=== PATIENT | female | born 1955 | race African-American/Black ===

== ENCOUNTER 2018-07-19 08:54 | Emergency (ER) | payer MEDICARE, MEDICAID ==
[~2018-07-19] VITALS: Ht 188 cm; Wt 104.0 kg
[2018-07-19 10:17] LABS: BASOPHILS % 1.1 % (0.0-2.0); EOSINOPHILS % 0.7 % (0.0-5.0); HEMATOCRIT. 40.9 % (36.0-48.0); HEMOGLOBIN. 13.1 g/dL (12.0-16.0); LYMPHOCYTES % 34.6 % (20.0-50.0); MEAN CORPUSCULAR HEMOGLOBIN 26.6 pg (28.0-32.0); MEAN CORPUSCULAR VOLUME 82.9 fL (81.0-99.0); MEAN PLATELET VOLUME 11.6 fl (7.4-10.4); MONOCYTES % 9.1 % (2.0-8.0); NEUTROPHILS % 54.5 % (40.0-76.0); PLATELET 202 x1000/uL (130-400); RED BLOOD CELL COUNT 4.94 mill/uL (4.2-5.4); RED CELL DISTRIBUTION WIDTH 13.9 % (11.6-14.6)
[2018-07-19 10:27] LABS: CHLORIDE 108 mEq/L (98-107)
[2018-07-19] MEDS ORDERED: IPRATROPIUM BROMIDE (0.02%) 0.5MG/2.5ML NEB HHN STA (11:13)
[2018-07-19] MEDS ORDERED: ALBUTEROL (0.083%) 2.5MG/3ML NEB HHN STA (11:13)
[2018-07-19] MEDS ORDERED: METHYLPREDNISOLONE SOD SUCC 125 MG/2 ML VIAL IV SCH (13:15)
[2018-07-19 13:23] VITALS: BP 158/71
== END 2018-07-19 14:01 | disposition home or self-care (01) ==
LOC: ER 08:54
DX: J44.1 Chronic obstructive pulmonary disease with (acute) exacerbation (principal); I10 Essential (primary) hypertension; Z88.0 Allergy status to penicillin
CPT/HCPCS: 36415; 71045; 80053; 84484; 85025; 93005; 94640; 96374; 99284; J2930; J7611

== ENCOUNTER 2020-01-23 04:36 | Emergency (ER) | payer MEDICARE, MEDICAID ==
[~2020-01-23] VITALS: Ht 188 cm; Wt 93.0 kg
[2020-01-23] MEDS ORDERED: KETOROLAC 30MG/ML VIAL IM ONE (05:30)
[2020-01-23 07:42] VITALS: BP 161/77
== END 2020-01-23 07:43 | disposition home or self-care (01) ==
LOC: ER 04:36
DX: M25.552 Pain in left hip (principal); M79.602 Pain in left arm; T46.4X5A Adverse effect of angiotensin-converting-enzyme inhibitors, initial encounter; E11.9 Type 2 diabetes mellitus without complications; I10 Essential (primary) hypertension; J44.9 Chronic obstructive pulmonary disease, unspecified; J45.909 Unspecified asthma, uncomplicated; Z88.0 Allergy status to penicillin
CPT/HCPCS: 70450; 72125; 73090; 73502; 96372; 99285; J1885

== ENCOUNTER 2020-05-31 13:01 | Inpatient (IN) | payer MEDICARE, MEDICAID ==
[~2020-05-31] VITALS: Ht 188 cm; Wt 109.4 kg
[2020-05-31 14:33] LABS: BASOPHILS % 0.6 % (0.0-2.0); EOSINOPHILS % 0.8 % (0.0-5.0); HEMATOCRIT. 41.1 % (36.0-48.0); HEMOGLOBIN. 13.2 g/dL (12.0-16.0); LYMPHOCYTES % 35.6 % (20.0-50.0); MEAN CORPUSCULAR HEMOGLOBIN 26.8 pg (28.0-32.0); MEAN CORPUSCULAR VOLUME 83.3 fL (81.0-99.0); MEAN PLATELET VOLUME 9.6 fl (7.4-10.4); MONOCYTES % 7.8 % (2.0-8.0); NEUTROPHILS % 55.2 % (40.0-76.0); PLATELET 256 x1000/uL (130-400); RED BLOOD CELL COUNT 4.93 mill/uL (4.2-5.4); RED CELL DISTRIBUTION WIDTH 13.3 % (11.6-14.6)
[2020-05-31 14:40] LABS: CHLORIDE 105 mEq/L (98-107)
[2020-05-31 14:44] LABS: D-DIMER 0.23 mg/L FEU (<0.50); PROTHROMBIN TIME 10.4 sec (9.6-11.0)
[2020-05-31 14:45] LABS: ETHANOL BLOOD < 10 mg/dL
[2020-05-31] MEDS ORDERED: LEVETIRACETAM 1000MG PREMIX 100 ML IV ONE (15:00)
[2020-05-31] MEDS ORDERED: IPRATROPIUM/ALBUTEROL 0.5-3(2.5)MG/3ML NEB HHN PRN (15:00)
[2020-05-31] MEDS ORDERED: ONDANSETRON HCL 4MG/2ML INJ IV PRN (15:00)
[2020-05-31] MEDS ORDERED: ACETAMINOPHEN 325MG TABLET PO PRN (15:00)
[2020-05-31 15:10] LABS: CLARITY URINE CLEAR (CLEAR); COLOR URINE YELLOW (YELLOW); KETONES URINE NEGATIVE (NEGATIVE); LEUKOCYTE ESTERASE URINE NEGATIVE (NEGATIVE); NITRITE URINE NEGATIVE (NEGATIVE); OCCULT BLOOD URINE NEGATIVE (NEGATIVE); PH URINE 6.5 (4.5-8.0); PROTEIN URINE NEGATIVE (NEGATIVE); SPECIFIC GRAVITY URINE 1.021 (1.005-1.030); UROBILINOGEN URINE 0.2 E.U./dL (0.2-1.0)
[2020-05-31 15:53] LABS: *AMPHETAMINES SCREEN URINE NEGATIVE (NEGATIVE); *BARBITURATES SCREEN URINE NEGATIVE (NEGATIVE); *BENZODIAZEPINES SCREEN URINE NEGATIVE (NEGATIVE); *COCAINE SCREEN URINE NEGATIVE (NEGATIVE); CANNABINOID URINE SCREEN NEGATIVE (NEGATIVE); OPIATES URINE SCREEN PRESUMTIVE POSITIVE (NEGATIVE); PHENCYCLIDINE URINE SCREEN NEGATIVE (NEGATIVE)
[2020-05-31 15:55] LABS: METHADONE URINE SCREEN NEGATIVE (NEGATIVE)
[2020-05-31] MEDS: ENOXAPARIN 40MG/0.4ML SYR SUBCUT SCH (17:13)
[2020-05-31] MEDS ORDERED: IOHEXOL-350 100 ML BOTTLE ONE (17:20)
[2020-05-31 23:25] VITALS: BP 183/98
[2020-06-01] VITALS (13 sets, daily range): BP systolic 114–178; BP diastolic 62–123
[2020-06-01] MEDS ORDERED: Atenolol (03:43)
[2020-06-01] MEDS ORDERED: Gabapentin (03:44)
[2020-06-01] MEDS ORDERED: Atorvastatin (03:45)
[2020-06-01] MEDS ORDERED: Metformin (03:46)
[2020-06-01] MEDS ORDERED: Amlodipine (03:47)
[2020-06-01] MEDS ORDERED: CLONIDINE 0.1MG TABLET PO PRN (06:00)
[2020-06-01] MEDS ORDERED: DEXTROSE 50% WATER 50ML SYRINGE IV PRN (06:00)
[2020-06-01] MEDS ORDERED: HYDROCODONE/ACETAMINOPHEN 5/325MG TABLET PO PRN (06:00)
[2020-06-01] MEDS: BLOOD SUGAR DIAGNOSTIC STRIP TEST SCH ×4 (06:50→21:03)
[2020-06-01] MEDS ORDERED: Lorazepam (08:16)
[2020-06-01] MEDS ORDERED: HEPARIN 5000 UNITS/ML VIAL SUBCUT SCH (09:00)
[2020-06-01] MEDS: ASPIRIN 81MG TABLET PO SCH (09:26)
[2020-06-01] MEDS: AMLODIPINE 10MG TABLET PO SCH (09:27)
[2020-06-01] MEDS: INSULIN LISPRO 100 UNITS/ML SUBCUT SCH ×4 (09:33→21:00)
[2020-06-01 10:25] LABS: CHLORIDE 106 mEq/L (98-107)
[2020-06-01 10:34] LABS: LDL CHOLESTEROL 79 mg/dL (5-100)
[2020-06-01 10:35] LABS: CREATINE KINASE 67 IU/L (26-192); HDL CHOLESTEROL 45 mg/dL (40-59)
[2020-06-01 10:37] LABS: CREATINE KINASE MB FRACTION < 1.0 ng/mL (0.5-3.6)
[2020-06-01] MEDS: LOSARTAN POTASSIUM 100 MG TABLET PO SCH (11:38)
[2020-06-01] MEDS: HYDROCODONE/ACETAMINOPHEN 5/325MG TABLET PO PRN ×2 (11:48→21:56)
[2020-06-01] MEDS: GABAPENTIN 300MG CAPSULE PO SCH ×2 (15:28→21:48)
[2020-06-01] MEDS: ENOXAPARIN 40MG/0.4ML SYR SUBCUT SCH (15:28)
[2020-06-01 16:10] LABS: CREATINE KINASE 65 IU/L (26-192)
[2020-06-01 16:11] LABS: CREATINE KINASE MB FRACTION < 1.0 ng/mL (0.5-3.6)
[2020-06-02] VITALS (11 sets, daily range): BP systolic 119–166; BP diastolic 63–79
[2020-06-02 00:42] LABS: CREATINE KINASE 64 IU/L (26-192)
[2020-06-02 00:44] LABS: CREATINE KINASE MB FRACTION < 1.0 ng/mL (0.5-3.6)
[2020-06-02] MEDS: GABAPENTIN 300MG CAPSULE PO SCH ×3 (06:35→22:08)
[2020-06-02] MEDS: BLOOD SUGAR DIAGNOSTIC STRIP TEST SCH ×4 (06:45→21:00)
[2020-06-02] MEDS: INSULIN LISPRO 100 UNITS/ML SUBCUT SCH ×4 (07:20→22:06)
[2020-06-02] MEDS: ASPIRIN 81MG TABLET PO SCH (08:33)
[2020-06-02] MEDS: LOSARTAN POTASSIUM 100 MG TABLET PO SCH (08:33)
[2020-06-02] MEDS: AMLODIPINE 10MG TABLET PO SCH (08:33)
[2020-06-02] MEDS: HYDROCODONE/ACETAMINOPHEN 5/325MG TABLET PO PRN ×2 (13:00→22:08)
[2020-06-02] MEDS: ENOXAPARIN 40MG/0.4ML SYR SUBCUT SCH (15:08)
[2020-06-02] MEDS: IPRATROPIUM/ALBUTEROL 0.5-3(2.5)MG/3ML NEB HHN SCH ×2 (15:13→20:17)
[2020-06-03] VITALS (7 sets, daily range): BP systolic 113–141; BP diastolic 64–82
[2020-06-03] MEDS: IPRATROPIUM/ALBUTEROL 0.5-3(2.5)MG/3ML NEB HHN SCH ×3 (00:23→07:24)
[2020-06-03] MEDS: GABAPENTIN 300MG CAPSULE PO SCH (06:14)
[2020-06-03] MEDS: BLOOD SUGAR DIAGNOSTIC STRIP TEST SCH ×2 (06:24→12:10)
[2020-06-03] MEDS: INSULIN LISPRO 100 UNITS/ML SUBCUT SCH ×2 (06:24→12:23)
[2020-06-03] MEDS: LOSARTAN POTASSIUM 100 MG TABLET PO SCH (08:40)
[2020-06-03] MEDS: AMLODIPINE 10MG TABLET PO SCH (08:40)
[2020-06-03] MEDS: ASPIRIN 81MG TABLET PO SCH (08:40)
[2020-06-03] MEDS: HYDROCODONE/ACETAMINOPHEN 5/325MG TABLET PO PRN (10:55)
== END 2020-06-03 13:00 | disposition home or self-care (01) | DRG 71 ==
LOC: ER 13:01 → 3WST 14:55 → EDBEDREQ 14:58 → ENRESERV 21:44
PROVIDERS: ADMIT Family Medicine Adult Medicine; ATTEND Family Medicine Adult Medicine
DX: I67.2 Cerebral atherosclerosis (principal); G45.9 Transient cerebral ischemic attack, unspecified; E11.9 Type 2 diabetes mellitus without complications; E66.9 Obesity, unspecified; M54.30 Sciatica, unspecified side; E78.5 Hyperlipidemia, unspecified; R53.1 Weakness; I10 Essential (primary) hypertension; J44.9 Chronic obstructive pulmonary disease, unspecified; Z88.8 Allergy status to other drugs, medicaments and biological substances; Z88.0 Allergy status to penicillin; Z86.73 Personal history of transient ischemic attack (TIA), and cerebral infarction without residual deficits; Z71.3 Dietary counseling and surveillance; Z68.31 Body mass index [BMI] 31.0-31.9, adult
CPT/HCPCS: 36415; 70496; 70498; 70551; 71045; 80053; 80061; 80305; 80320; 81003; 82140; 82550; 82553; 82962; 83036; 83880; 84443; 84484; 85025; 85379; 93005; 97116; 97162; 97165; 99285; J1650; J1815; Q9967; G0480

== ENCOUNTER 2020-08-03 14:41 | Inpatient (IN) | payer MEDICARE, MEDICAID ==
[~2020-08-03] VITALS: Ht 177.8 cm; Wt 105.7 kg
[~2020-08-03 14:41] MED LIST: Amlodipine; Atenolol; Atorvastatin; Gabapentin; Metformin
[2020-08-03 15:44] LABS: BASOPHILS % 0.9 % (0.0-2.0); HEMATOCRIT. 42.2 % (36.0-48.0); HEMOGLOBIN. 13.6 g/dL (12.0-16.0); LYMPHOCYTES % 34.3 % (20.0-50.0); MEAN CORPUSCULAR VOLUME 83.5 fL (81.0-99.0); MEAN PLATELET VOLUME 10.3 fl (7.4-10.4); MONOCYTES % 8.9 % (2.0-8.0); NEUTROPHILS % 54.9 % (40.0-76.0); PLATELET 201 x1000/uL (130-400); RED BLOOD CELL COUNT 5.05 mill/uL (4.2-5.4); RED CELL DISTRIBUTION WIDTH 13.6 % (11.6-14.6)
[2020-08-03 15:48] LABS: CHLORIDE 106 mEq/L (98-107)
[2020-08-03 15:53] LABS: ETHANOL BLOOD < 10 mg/dL
[2020-08-03 15:57] LABS: CREATINE KINASE 100 IU/L (26-192)
[2020-08-03] MEDS ORDERED: ACETAMINOPHEN 325MG TABLET PO ONE (16:45)
[2020-08-03] MEDS ORDERED: IOHEXOL-350 100 ML BOTTLE ONE (17:21)
[2020-08-03 18:29] LABS: CLARITY URINE CLEAR (CLEAR); COLOR URINE YELLOW (YELLOW); KETONES URINE NEGATIVE (NEGATIVE); LEUKOCYTE ESTERASE URINE NEGATIVE (NEGATIVE); NITRITE URINE NEGATIVE (NEGATIVE); OCCULT BLOOD URINE NEGATIVE (NEGATIVE); PH URINE 6.5 (4.5-8.0); PROTEIN URINE NEGATIVE (NEGATIVE); SPECIFIC GRAVITY URINE 1.035 (1.005-1.030); UROBILINOGEN URINE 0.2 E.U./dL (0.2-1.0)
[2020-08-03 18:43] LABS: *AMPHETAMINES SCREEN URINE NEGATIVE (NEGATIVE); *BARBITURATES SCREEN URINE NEGATIVE (NEGATIVE); *BENZODIAZEPINES SCREEN URINE NEGATIVE (NEGATIVE); *COCAINE SCREEN URINE NEGATIVE (NEGATIVE); METHADONE URINE SCREEN NEGATIVE (NEGATIVE); OPIATES URINE SCREEN PRESUMTIVE POSITIVE (NEGATIVE)
[2020-08-03 18:44] LABS: CANNABINOID URINE SCREEN NEGATIVE (NEGATIVE); PHENCYCLIDINE URINE SCREEN NEGATIVE (NEGATIVE)
[2020-08-03] MEDS ORDERED: DOCUSATE SODIUM 100MG CAPSULE PO PRN (19:45)
[2020-08-03] MEDS ORDERED: ONDANSETRON HCL 4MG/2ML INJ IV PRN (19:45)
[2020-08-03] MEDS ORDERED: IPRATROPIUM/ALBUTEROL 0.5-3(2.5)MG/3ML NEB NEB PRN (19:45)
[2020-08-03] MEDS ORDERED: MORPHINE SULFATE 2 MG/ML CPJ (NOT FOR IM USE) IV PRN (19:45)
[2020-08-03] MEDS ORDERED: DEXTROSE 50% WATER 50ML SYRINGE IV PRN ×2 (19:45→23:00)
[2020-08-03] MEDS ORDERED: DIPHENHYDRAMINE 50MG/ML VIAL IV PRN (19:45)
[2020-08-03] MEDS ORDERED: CLONIDINE 0.1MG TABLET PO PRN (19:45)
[2020-08-03] MEDS ORDERED: MAGNESIUM/ALUMINUM HYDROXIDE/SIMETHICONE 30ML UDC PO PRN (19:45)
[2020-08-03] MEDS ORDERED: GUAIFENESIN 200MG/10ML SUGAR FREE UDC PO PRN (19:45)
[2020-08-03] MEDS ORDERED: NA PHOS,M-B/NA PHOS,DI-BA ENEMA 118ML PR PRN (19:45)
[2020-08-03] MEDS ORDERED: LORAZEPAM 2MG/ML CPJ IV PRN (19:45)
[2020-08-03] MEDS ORDERED: HYDROCODONE/ACETAMINOPHEN 10/325MG TABLET PO PRN (19:45)
[2020-08-03] MEDS ORDERED: HYDRALAZINE 20MG/ML VIAL IV PRN (19:45)
[2020-08-03] MEDS ORDERED: ACETAMINOPHEN 325MG TABLET PO PRN ×2 (19:45→23:15)
[2020-08-03] MEDS ORDERED: INSULIN LISPRO 100 UNITS/ML SUBCUT SCH (21:00)
[2020-08-03] MEDS ORDERED: BLOOD SUGAR DIAGNOSTIC STRIP TEST SCH (21:00)
[2020-08-03] MEDS ORDERED: ENOXAPARIN 30MG/0.3ML SYR SUBCUT SCH (21:00)
[2020-08-03] MEDS ORDERED: SODIUM CHLORIDE 0.9% INJ 3ML FLUSH IVF SCH (22:00)
[2020-08-03] MEDS ORDERED: LORAZEPAM 1MG TABLET PO ONE (23:15)
[2020-08-04] MEDS: BLOOD SUGAR DIAGNOSTIC STRIP TEST SCH ×4 (06:30→20:49)
[2020-08-04] MEDS: INSULIN LISPRO (MEDIUM DOSE) 100 UNITS/ML SUBCUT SCH ×5 (07:00→21:55)
[2020-08-04 08:00] VITALS: BP 124/52
[2020-08-04 09:00] VITALS: BP 142/62
[2020-08-04] MEDS ORDERED: HYDR-4350 PO (11:59)
[2020-08-04 12:00] VITALS: BP 145/88
[2020-08-04] MEDS: ENOXAPARIN 30MG/0.3ML SYR SUBCUT SCH ×2 (12:00→21:00)
[2020-08-04] MEDS: LACTULOSE 20G/30ML UDC PO SCH ×2 (14:12→21:34)
[2020-08-04] MEDS: LORAZEPAM 1MG TABLET PO PRN (14:12)
[2020-08-04] MEDS ORDERED: HYDROCODONE/ACETAMINOPHEN 5/325MG TABLET PO PRN ×2 (15:00→16:00)
[2020-08-04 16:00] VITALS: BP 126/52
[2020-08-04] MEDS ORDERED: IPRATROPIUM/ALBUTEROL 0.5-3(2.5)MG/3ML NEB HHN PRN (16:00)
[2020-08-04 20:00] VITALS: BP 109/68
[2020-08-04 20:37] LABS: BASOPHILS % 0.5 % (0.0-2.0); EOSINOPHILS % 1.1 % (0.0-5.0); HEMATOCRIT. 40.5 % (36.0-48.0); LYMPHOCYTES % 36.5 % (20.0-50.0); MEAN CORPUSCULAR HEMOGLOBIN 26.7 pg (28.0-32.0); MEAN CORPUSCULAR VOLUME 83.3 fL (81.0-99.0); MEAN PLATELET VOLUME 10.9 fl (7.4-10.4); MONOCYTES % 10.8 % (2.0-8.0); NEUTROPHILS % 51.1 % (40.0-76.0); PLATELET 211 x1000/uL (130-400); RED BLOOD CELL COUNT 4.87 mill/uL (4.2-5.4); RED CELL DISTRIBUTION WIDTH 13.5 % (11.6-14.6)
[2020-08-04 20:42] LABS: CHLORIDE 107 mEq/L (98-107)
[2020-08-04] MEDS: ATORVASTATIN CALCIUM 40MG TABLET PO SCH (21:33)
[2020-08-05] VITALS: BP 142/69
[2020-08-05 04:00] VITALS: BP 120/69
[2020-08-05] MEDS: BLOOD SUGAR DIAGNOSTIC STRIP TEST SCH ×3 (05:41→21:00)
[2020-08-05] MEDS: LACTULOSE 20G/30ML UDC PO SCH (06:23)
[2020-08-05] MEDS: INSULIN LISPRO (MEDIUM DOSE) 100 UNITS/ML SUBCUT SCH ×3 (06:33→21:00)
[2020-08-05 06:41] LABS: EOSINOPHILS % 1.8 % (0.0-5.0); HEMATOCRIT. 39.4 % (36.0-48.0); HEMOGLOBIN. 12.8 g/dL (12.0-16.0); LYMPHOCYTES % 37.7 % (20.0-50.0); MEAN CORPUSCULAR HEMOGLOBIN 26.8 pg (28.0-32.0); MEAN CORPUSCULAR VOLUME 82.7 fL (81.0-99.0); MEAN PLATELET VOLUME 10.8 fl (7.4-10.4); MONOCYTES % 11.2 % (2.0-8.0); NEUTROPHILS % 48.3 % (40.0-76.0); PLATELET 218 x1000/uL (130-400); RED BLOOD CELL COUNT 4.77 mill/uL (4.2-5.4); RED CELL DISTRIBUTION WIDTH 13.4 % (11.6-14.6)
[2020-08-05 07:01] LABS: CHLORIDE 106 mEq/L (98-107)
[2020-08-05 08:00] VITALS: BP 125/69
[2020-08-05] MEDS: ENOXAPARIN 30MG/0.3ML SYR SUBCUT SCH ×2 (09:00→21:00)
[2020-08-05] MEDS ORDERED: ASPIRIN 81MG TABLET PO SCH (09:00)
[2020-08-05] MEDS: HYDROCODONE/ACETAMINOPHEN 10/325MG TABLET PO PRN ×2 (11:09→21:12)
[2020-08-05 12:00] VITALS: BP 124/70
[2020-08-05 16:00] VITALS: BP 156/81
[2020-08-05 20:00] VITALS: BP 104/84
[2020-08-05] MEDS: ATORVASTATIN CALCIUM 40MG TABLET PO SCH (21:10)
[2020-08-06] VITALS: BP 160/85
[2020-08-06] MEDS: LORAZEPAM 1MG TABLET PO PRN (00:59)
[2020-08-06 04:00] VITALS: BP 135/75
[2020-08-06] MEDS: BLOOD SUGAR DIAGNOSTIC STRIP TEST SCH ×4 (05:53→20:58)
[2020-08-06] MEDS: INSULIN LISPRO (MEDIUM DOSE) 100 UNITS/ML SUBCUT SCH ×4 (05:57→21:03)
[2020-08-06 08:00] VITALS: BP 97/57
[2020-08-06] MEDS: ENOXAPARIN 30MG/0.3ML SYR SUBCUT SCH ×3 (09:00→21:00)
[2020-08-06] MEDS: CLOPIDOGREL 75MG TABLET PO SCH (09:23)
[2020-08-06] MEDS: HYDROCODONE/ACETAMINOPHEN 10/325MG TABLET PO PRN ×2 (10:26→19:50)
[2020-08-06 12:00] VITALS: BP 138/78
[2020-08-06 16:00] VITALS: BP 133/55
[2020-08-06 20:00] VITALS: BP 152/80
[2020-08-06] MEDS: ATORVASTATIN CALCIUM 40MG TABLET PO SCH (20:58)
[2020-08-07] VITALS: BP 141/73
[2020-08-07 04:00] VITALS: BP 116/61
[2020-08-07] MEDS: BLOOD SUGAR DIAGNOSTIC STRIP TEST SCH ×2 (06:19→12:10)
[2020-08-07 08:00] VITALS: BP 137/54
[2020-08-07] MEDS: INSULIN LISPRO (MEDIUM DOSE) 100 UNITS/ML SUBCUT SCH ×2 (08:23→12:40)
[2020-08-07] MEDS: ENOXAPARIN 30MG/0.3ML SYR SUBCUT SCH ×2 (08:24→08:44)
[2020-08-07] MEDS: CLOPIDOGREL 75MG TABLET PO SCH (08:24)
[2020-08-07] MEDS: HYDROCODONE/ACETAMINOPHEN 10/325MG TABLET PO PRN (08:27)
[2020-08-07 12:00] VITALS: BP 123/72
[2020-08-07 14:12] VITALS: BP 123/72
== END 2020-08-07 15:03 | disposition home or self-care (01) | DRG 69 ==
LOC: ER 14:41 → MICUSO 18:09 → 8WST 08-04 07:33
PROVIDERS: ADMIT Internal Medicine; ATTEND Internal Medicine
DX: G45.9 Transient cerebral ischemic attack, unspecified (principal); E72.20 Disorder of urea cycle metabolism, unspecified; E11.9 Type 2 diabetes mellitus without complications; E66.9 Obesity, unspecified; E78.00 Pure hypercholesterolemia, unspecified; E78.5 Hyperlipidemia, unspecified; I10 Essential (primary) hypertension; J44.9 Chronic obstructive pulmonary disease, unspecified; R29.810 Facial weakness; M54.30 Sciatica, unspecified side; R20.2 Paresthesia of skin; K76.0 Fatty (change of) liver, not elsewhere classified; Z88.0 Allergy status to penicillin; Z86.73 Personal history of transient ischemic attack (TIA), and cerebral infarction without residual deficits; Z88.8 Allergy status to other drugs, medicaments and biological substances; G43.909 Migraine, unspecified, not intractable, without status migrainosus; Z68.33 Body mass index [BMI] 33.0-33.9, adult
CPT/HCPCS: 36415; 70496; 70551; 71045; 76700; 80048; 80053; 80305; 80320; 81003; 82140; 82550; 82962; 83605; 83880; 84443; 84484; 85025; 93005; 93306; 93880; 93970; 96374; 97162; 97165; 99291; J1650; J1815; J2060; J2405; Q9967; G0480

== ENCOUNTER 2021-03-03 17:56 | Emergency (ER) | payer MEDICARE, MEDICAID ==
[~2021-03-03] VITALS: Ht 188 cm; Wt 105.0 kg
[~2021-03-03 17:56] MED LIST changes: +ASPI-1497 MT; -Amlodipine; -Atenolol; -Atorvastatin; -Gabapentin; +HYDR-4350 PO; +KEPP500 MT; -Metformin; +amlodipine; +metformin; +metoprolol
[2021-03-03] MEDS ORDERED: LEVETIRACETAM 500MG PREMIX 100 ML IV ONE (19:45)
[2021-03-03 20:14] LABS: EOSINOPHILS % 0.7 % (0.0-5.0); HEMATOCRIT. 38.2 % (36.0-48.0); HEMOGLOBIN. 12.8 g/dL (12.0-16.0); LYMPHOCYTES % 36.8 % (20.0-50.0); MEAN CORPUSCULAR HEMOGLOBIN 27.2 pg (28.0-32.0); MEAN CORPUSCULAR VOLUME 81.3 fL (81.0-99.0); MEAN PLATELET VOLUME 10.3 fl (7.4-10.4); MONOCYTES % 11.9 % (2.0-8.0); NEUTROPHILS % 49.6 % (40.0-76.0); PLATELET 222 x1000/uL (130-400); RED BLOOD CELL COUNT 4.69 mill/uL (4.2-5.4); RED CELL DISTRIBUTION WIDTH 13.4 % (11.6-14.6)
[2021-03-03 20:42] LABS: CHLORIDE 111 mEq/L (98-107)
[2021-03-03 20:49] LABS: ETHANOL BLOOD < 10 mg/dL
[2021-03-03] MEDS ORDERED: ACETAMINOPHEN 325MG TABLET PO ONE (21:00)
[2021-03-03 22:00] VITALS: BP 132/80
== END 2021-03-03 23:00 | disposition home or self-care (01) ==
LOC: ER 17:56
DX: G40.909 Epilepsy, unspecified, not intractable, without status epilepticus (principal); E11.9 Type 2 diabetes mellitus without complications; I10 Essential (primary) hypertension; J44.9 Chronic obstructive pulmonary disease, unspecified; Z86.73 Personal history of transient ischemic attack (TIA), and cerebral infarction without residual deficits; Z88.8 Allergy status to other drugs, medicaments and biological substances; Z88.0 Allergy status to penicillin; Z79.84 Long term (current) use of oral hypoglycemic drugs
CPT/HCPCS: 36415; 70450; 80053; 80320; 82962; 85025; 96365; 96366; 99285; J1953; G0480

== ENCOUNTER 2021-06-24 07:00 | Emergency (ER) | payer MEDICARE, MEDICAID ==
[~2021-06-24] VITALS: Ht 177.8 cm; Wt 86.0 kg
[2021-06-24 08:48] LABS: BASOPHILS % 1.3 % (0.0-2.0); HEMATOCRIT. 37.3 % (36.0-48.0); HEMOGLOBIN. 12.3 g/dL (12.0-16.0); LYMPHOCYTES % 39.1 % (20.0-50.0); MEAN CORPUSCULAR VOLUME 81.7 fL (81.0-99.0); MONOCYTES % 11.7 % (2.0-8.0); NEUTROPHILS % 46.9 % (40.0-76.0); PLATELET 286 x1000/uL (130-400); RED BLOOD CELL COUNT 4.57 mill/uL (4.2-5.4)
[2021-06-24 08:52] LABS: CHLORIDE 108 mEq/L (98-107)
[2021-06-24 08:56] LABS: ETHANOL BLOOD < 10 mg/dL
[2021-06-24 10:21] LABS: CLARITY URINE CLEAR (CLEAR); COLOR URINE YELLOW (YELLOW); KETONES URINE NEGATIVE (NEGATIVE); LEUKOCYTE ESTERASE URINE NEGATIVE (NEGATIVE); NITRITE URINE NEGATIVE (NEGATIVE); OCCULT BLOOD URINE NEGATIVE (NEGATIVE); PROTEIN URINE NEGATIVE (NEGATIVE); SPECIFIC GRAVITY URINE 1.025 (1.005-1.030); UROBILINOGEN URINE 0.2 E.U./dL (0.2-1.0)
[2021-06-24 10:34] LABS: *BENZODIAZEPINES SCREEN URINE NEGATIVE (NEGATIVE)
[2021-06-24 10:35] LABS: *AMPHETAMINES SCREEN URINE NEGATIVE (NEGATIVE); *BARBITURATES SCREEN URINE NEGATIVE (NEGATIVE); *COCAINE SCREEN URINE NEGATIVE (NEGATIVE); CANNABINOID URINE SCREEN NEGATIVE (NEGATIVE); METHADONE URINE SCREEN NEGATIVE (NEGATIVE); OPIATES URINE SCREEN PRESUMTIVE POSITIVE (NEGATIVE); PHENCYCLIDINE URINE SCREEN NEGATIVE (NEGATIVE)
[2021-06-24] MEDS ORDERED: KEPP500 MT (13:19)
[2021-06-24] MEDS ORDERED: NITR-87 MT (13:19)
[2021-06-24 13:48] VITALS: BP 136/65
== END 2021-06-24 14:19 | disposition home or self-care (01) ==
LOC: ER 07:45
DX: G40.909 Epilepsy, unspecified, not intractable, without status epilepticus (principal); R51.9 Headache, unspecified; N39.0 Urinary tract infection, site not specified; E11.9 Type 2 diabetes mellitus without complications; I10 Essential (primary) hypertension; J44.9 Chronic obstructive pulmonary disease, unspecified; Z79.899 Other long term (current) drug therapy; Z88.0 Allergy status to penicillin; Z88.8 Allergy status to other drugs, medicaments and biological substances; Z86.73 Personal history of transient ischemic attack (TIA), and cerebral infarction without residual deficits
CPT/HCPCS: 36415; 80053; 80305; 80320; 81003; 85025; 93005; 99284; 99285; G0480

== ENCOUNTER 2021-08-22 21:06 | Emergency (ER) | payer MEDICARE, MEDICAID ==
[~2021-08-22] VITALS: Ht 188 cm; Wt 104.0 kg
[~2021-08-22 21:06] MED LIST changes: +NITR-87 MT
[2021-08-22] MEDS ORDERED: KETOROLAC 60MG/2ML VIAL IM ONE (23:00)
[2021-08-22] MEDS ORDERED: LIDOCAINE 5% PATCH TOP SCH (23:00)
[2021-08-22] MEDS ORDERED: METHOCARBAMOL 500MG TABLET PO ONE (23:00)
[2021-08-23] MEDS ORDERED: LIDO1ADH5 TP (00:16)
[2021-08-23] MEDS ORDERED: IBUP-2028 MT (00:16)
[2021-08-23] MEDS ORDERED: METH-653 MT (00:17)
[2021-08-23 00:48] VITALS: BP 138/88
== END 2021-08-23 00:49 | disposition home or self-care (01) ==
LOC: ER 21:06
DX: S06.0X0A Concussion without loss of consciousness, initial encounter (principal); S13.4XXA Sprain of ligaments of cervical spine, initial encounter; E11.9 Type 2 diabetes mellitus without complications; J44.9 Chronic obstructive pulmonary disease, unspecified; I10 Essential (primary) hypertension; G40.909 Epilepsy, unspecified, not intractable, without status epilepticus; Z86.73 Personal history of transient ischemic attack (TIA), and cerebral infarction without residual deficits; Z88.0 Allergy status to penicillin; Z88.8 Allergy status to other drugs, medicaments and biological substances; Z79.82 Long term (current) use of aspirin; Z79.84 Long term (current) use of oral hypoglycemic drugs; W22.8XXA Striking against or struck by other objects, initial encounter; Y93.89 Activity, other specified; Y92.810 Car as the place of occurrence of the external cause
CPT/HCPCS: 70450; 72125; 96372; 99284; J1885

== ENCOUNTER 2022-01-25 13:57 | Emergency (ER) | payer MEDICARE, MEDICAID ==
[~2022-01-25] VITALS: Ht 188 cm; Wt 105.0 kg
[~2022-01-25 13:57] MED LIST changes: +IBUP-2028 MT; +LIDO1ADH5 TP; +METH-653 MT
[2022-01-25] MEDS ORDERED: ONDANSETRON HCL 4MG/2ML INJ IV STA (16:16)
[2022-01-25] MEDS ORDERED: MORPHINE SULFATE 4 MG/ML CPJ (NOT FOR IM USE) IV STA (16:16)
[2022-01-25 16:37] LABS: BASOPHILS % 0.8 % (0.0-2.0); EOSINOPHILS % 1.3 % (0.0-5.0); HEMATOCRIT. 42.4 % (36.0-48.0); HEMOGLOBIN. 13.4 g/dL (12.0-16.0); LYMPHOCYTES % 37.4 % (20.0-50.0); MEAN CORPUSCULAR HEMOGLOBIN 26.8 pg (28.0-32.0); MEAN PLATELET VOLUME 10.6 fl (7.4-10.4); MONOCYTES % 10.6 % (2.0-8.0); NEUTROPHILS % 49.9 % (40.0-76.0); PLATELET 233 x1000/uL (130-400); RED BLOOD CELL COUNT 4.99 mill/uL (4.2-5.4); RED CELL DISTRIBUTION WIDTH 14.5 % (11.6-14.6)
[2022-01-25 16:40] LABS: CHLORIDE 109 mEq/L (98-107)
[2022-01-25] MEDS ORDERED: HYDR-4001 MT (18:01)
[2022-01-25 18:26] VITALS: BP 137/75
== END 2022-01-25 18:28 | disposition home or self-care (01) ==
LOC: ER 13:57
DX: M54.9 Dorsalgia, unspecified (principal); J44.9 Chronic obstructive pulmonary disease, unspecified; E11.9 Type 2 diabetes mellitus without complications; I10 Essential (primary) hypertension; Z86.73 Personal history of transient ischemic attack (TIA), and cerebral infarction without residual deficits; Z79.899 Other long term (current) drug therapy
CPT/HCPCS: 36415; 71045; 71250; 72125; 74176; 80053; 83880; 84484; 85025; 96374; 96375; 99285; J2270; J2405

== ENCOUNTER 2022-04-18 21:00 | Emergency (ER) | payer MEDICARE, MEDICAID ==
[~2022-04-18] VITALS: Ht 188 cm; Wt 110.0 kg
[2022-04-18] MEDS ORDERED: DIPHENHYDRAMINE 50MG/ML VIAL IV ONE (21:30)
[2022-04-18] MEDS ORDERED: FAMOTIDINE 20MG/2ML VIAL IV ONE (21:30)
[2022-04-18] MEDS: ALBUTEROL (0.083%) 2.5MG/3ML NEB HHN SCH ×3 (21:54→23:16)
[2022-04-18] MEDS ORDERED: ACETAMINOPHEN 325MG TABLET PO ONE (23:00)
[2022-04-19 01:30] VITALS: BP 157/81
== END 2022-04-19 02:00 | disposition home or self-care (01) ==
LOC: ER 21:00
DX: T78.40XA Allergy, unspecified, initial encounter (principal); I10 Essential (primary) hypertension; E11.9 Type 2 diabetes mellitus without complications; Z88.0 Allergy status to penicillin; Z88.8 Allergy status to other drugs, medicaments and biological substances; Z79.899 Other long term (current) drug therapy; Z98.890 Other specified postprocedural states; X58.XXXA Exposure to other specified factors, initial encounter
CPT/HCPCS: 94640; 96374; 96375; 99285; J1200; J3490

== ENCOUNTER 2022-10-30 21:20 | Inpatient (IN) | payer MEDICARE, MEDICAID ==
[~2022-10-30] VITALS: Ht 188 cm; Wt 108.0 kg
[2022-10-30] MEDS ORDERED: SODIUM CHLORIDE 0.9% 1,000 ML IV ONE (23:15)
[2022-10-30 23:25] LABS: BASOPHILS % 0.8 % (0.0-2.0); EOSINOPHILS % 0.9 % (0.0-5.0); HEMATOCRIT. 35.3 % (36.0-48.0); HEMOGLOBIN. 11.4 g/dL (12.0-16.0); MEAN CORPUSCULAR HEMOGLOBIN 26.8 pg (28.0-32.0); MEAN CORPUSCULAR VOLUME 83.3 fL (81.0-99.0); MEAN PLATELET VOLUME 9.8 fl (7.4-10.4); MONOCYTES % 11.3 % (2.0-8.0); PLATELET 325 x1000/uL (130-400); RED BLOOD CELL COUNT 4.24 mill/uL (4.2-5.4); RED CELL DISTRIBUTION WIDTH 13.9 % (11.6-14.6)
[2022-10-30 23:27] LABS: CHLORIDE 111 mEq/L (98-107)
[2022-10-30 23:29] LABS: INR 1.1; PROTHROMBIN TIME 11.3 sec (9.6-11.0)
[2022-10-31] MEDS: ASPIRIN 325MG EC TABLET PO ONE ×2 (03:30→03:48)
[2022-10-31] MEDS ORDERED: OXYCODONE HCL/ACETAMINOPHEN 5/325MG TABLET PO NR (04:30)
[2022-10-31] MEDS ORDERED: DIPHENHYDRAMINE 25MG CAPSULE PO ONE (05:00)
[2022-10-31 05:16] LABS: CLARITY URINE CLEAR (CLEAR); COLOR URINE YELLOW (YELLOW); KETONES URINE NEGATIVE (NEGATIVE); LEUKOCYTE ESTERASE URINE NEGATIVE (NEGATIVE); NITRITE URINE NEGATIVE (NEGATIVE); OCCULT BLOOD URINE NEGATIVE (NEGATIVE); PROTEIN URINE NEGATIVE (NEGATIVE); SPECIFIC GRAVITY URINE 1.022 (1.005-1.030); UROBILINOGEN URINE 0.2 E.U./dL (0.2-1.0)
[2022-10-31 09:15] VITALS: BP 154/82
[2022-10-31 09:36] VITALS: BP 154/82
[2022-10-31] MEDS ORDERED: IPRATROPIUM/ALBUTEROL 0.5-3(2.5)MG/3ML NEB HHN PRN (11:30)
[2022-10-31] MEDS ORDERED: ONDANSETRON HCL 4MG/2ML INJ IV PRN (11:30)
[2022-10-31] MEDS ORDERED: CLONIDINE 0.1MG TABLET PO PRN (11:30)
[2022-10-31] MEDS ORDERED: DIPHENHYDRAMINE 50MG/ML VIAL IV PRN (11:30)
[2022-10-31] MEDS ORDERED: ACETAMINOPHEN 325MG TABLET PO PRN (11:30)
[2022-10-31] MEDS ORDERED: DEXTROSE 50% WATER 50ML SYRINGE IV PRN (13:30)
[2022-10-31 15:30] VITALS: BP 126/73
[2022-10-31] MEDS: AMLODIPINE 5MG TABLET PO SCH (15:34)
[2022-10-31] MEDS: BLOOD SUGAR DIAGNOSTIC STRIP TEST SCH ×2 (17:13→20:34)
[2022-10-31] MEDS: INSULIN LISPRO 100 UNITS/ML SUBCUT SCH ×2 (17:14→20:34)
[2022-10-31] MEDS ORDERED: SEMA2PEN SQ (19:50)
[2022-10-31] MEDS ORDERED: GABA-532 PO (19:50)
[2022-10-31 20:00] VITALS: BP 162/82
[2022-10-31] MEDS ORDERED: NALOXONE HCL 0.4MG/ML VIAL IV PRN (22:00)
[2022-10-31 22:16] VITALS: BP 143/80
[2022-10-31] MEDS: LEVETIRACETAM 500MG TABLET PO SCH (22:18)
[2022-10-31] MEDS: GABAPENTIN 300MG CAPSULE PO SCH (22:18)
[2022-10-31] MEDS: HYDROCODONE/ACETAMINOPHEN 10/325MG TABLET PO PRN (22:19)
[2022-11-01] VITALS: BP 130/62
[2022-11-01 05:30] VITALS: BP 123/69
[2022-11-01] MEDS: BLOOD SUGAR DIAGNOSTIC STRIP TEST SCH ×4 (05:52→21:23)
[2022-11-01] MEDS: INSULIN LISPRO 100 UNITS/ML SUBCUT SCH ×4 (05:52→21:00)
[2022-11-01] MEDS: GABAPENTIN 300MG CAPSULE PO SCH ×4 (05:52→21:38)
[2022-11-01] MEDS: HYDROCODONE/ACETAMINOPHEN 10/325MG TABLET PO PRN ×2 (06:17→21:38)
[2022-11-01 07:43] LABS: BASOPHILS % 0.7 % (0.0-2.0); CHLORIDE 112 mEq/L (98-107); EOSINOPHILS % 1.7 % (0.0-5.0); HEMOGLOBIN. 10.9 g/dL (12.0-16.0); LYMPHOCYTES % 41.6 % (20.0-50.0); MEAN CORPUSCULAR HEMOGLOBIN 26.6 pg (28.0-32.0); MEAN CORPUSCULAR VOLUME 82.9 fL (81.0-99.0); MEAN PLATELET VOLUME 9.9 fl (7.4-10.4); MONOCYTES % 10.1 % (2.0-8.0); NEUTROPHILS % 45.9 % (40.0-76.0); PLATELET 303 x1000/uL (130-400); RED BLOOD CELL COUNT 4.09 mill/uL (4.2-5.4); RED CELL DISTRIBUTION WIDTH 13.9 % (11.6-14.6)
[2022-11-01 08:00] VITALS: BP 109/60
[2022-11-01] MEDS: LEVETIRACETAM 500MG TABLET PO SCH ×2 (08:59→21:38)
[2022-11-01] MEDS: AMLODIPINE 5MG TABLET PO SCH (08:59)
[2022-11-01 12:00] VITALS: BP 107/56
[2022-11-01 16:00] VITALS: BP 113/67
[2022-11-01] MEDS: MECLIZINE 25MG TABLET PO PRN (16:50)
[2022-11-01] MEDS: ENOXAPARIN 30MG/0.3ML SYR SUBCUT SCH (18:00)
[2022-11-01 20:00] VITALS: BP 143/86
[2022-11-02] VITALS: BP 142/61
[2022-11-02 04:00] VITALS: BP 111/64
[2022-11-02] MEDS: GABAPENTIN 300MG CAPSULE PO SCH ×3 (05:34→16:54)
[2022-11-02] MEDS: HYDROCODONE/ACETAMINOPHEN 10/325MG TABLET PO PRN ×2 (05:36→13:15)
[2022-11-02] MEDS: ENOXAPARIN 30MG/0.3ML SYR SUBCUT SCH ×2 (05:46→16:55)
[2022-11-02] MEDS: INSULIN LISPRO 100 UNITS/ML SUBCUT SCH ×3 (06:56→16:31)
[2022-11-02] MEDS: BLOOD SUGAR DIAGNOSTIC STRIP TEST SCH ×3 (06:56→16:31)
[2022-11-02 08:00] VITALS: BP 146/75
[2022-11-02] MEDS: AMLODIPINE 5MG TABLET PO SCH (08:05)
[2022-11-02] MEDS: MECLIZINE 25MG TABLET PO PRN ×2 (08:05→16:54)
[2022-11-02] MEDS: LEVETIRACETAM 500MG TABLET PO SCH (08:05)
[2022-11-02 16:00] VITALS: BP 136/75
== END 2022-11-02 19:35 | disposition home or self-care (01) | DRG 69 ==
LOC: ER 21:20 → EDBEDREQ 10-31 04:19 → 8WST 10-31 08:46
PROVIDERS: ADMIT Specialist; ATTEND Specialist
DX: G45.9 Transient cerebral ischemic attack, unspecified (principal); I10 Essential (primary) hypertension; E11.9 Type 2 diabetes mellitus without complications; J44.9 Chronic obstructive pulmonary disease, unspecified; Z88.0 Allergy status to penicillin; Z82.49 Family history of ischemic heart disease and other diseases of the circulatory system
CPT/HCPCS: 36415; 70551; 71045; 80053; 81003; 82962; 83036; 85025; 93970; 99291; J1650; J7030; J8597; Q0163